=== PATIENT | female | born 1945 | race African-American/Black ===

== ENCOUNTER 2017-03-25 19:45 | Inpatient (IN) | payer MEDICARE, MEDICAID ==
[~2017-03-25] VITALS: Ht 167.6 cm; Wt 104.8 kg
[~2017-03-25 19:45] MED LIST: ASPI-1159 PO; CARV12.545 PO; CHOL20004 PO; FAMO40TA7 PO; FERR-63 PO; HYDR-4134 PO; INDA2.5T5 PO; ISOS1TAB PO; ISOS20TA8 PO; LOSA100T14 PO; RISP1 PO
[2017-03-25 20:00] VITALS: BP 132/82
[2017-03-25 20:30] VITALS: BP 132/82
[2017-03-25] MEDS ORDERED: DEXTROSE 50% WATER 50ML SYRINGE IV PRN (20:30)
[2017-03-25] MEDS ORDERED: ONDANSETRON HCL 4MG/2ML VIAL IV PRN (20:30)
[2017-03-25] MEDS: BLOOD SUGAR DIAGNOSTIC STRIP TEST SCH (21:00)
[2017-03-25] MEDS ORDERED: ACETAMINOPHEN 325MG TABLET PO PRN (21:45)
[2017-03-25] MEDS ORDERED: IRON SUCROSE COMPLEX 200 MG in SODIUM CHLORIDE 0.9% 100 ML IV SCH (22:00)
[2017-03-25] MEDS ORDERED: INSULIN DETEMIR UD 100 UNITS/ML SYR SUBCUT SCH ×2 (22:00)
[2017-03-25] MEDS ORDERED: SODIUM PHOS,M-BASIC-D-BASIC 20 MM in DEXT 5% WATER 243.3333 ML IV NR (22:00)
[2017-03-25] MEDS: INSULIN LISPRO 100 UNITS/ML SUBCUT SCH (22:48)
[2017-03-25] MEDS: RISPERIDONE 1MG TABLET PO SCH (22:49)
[2017-03-25] MEDS: INSULIN DETEMIR UD 100 UNITS/ML SYR SUBCUT SCH (22:49)
[2017-03-25] MEDS: CARVEDILOL 12.5MG TABLET PO SCH (22:50)
[2017-03-25] MEDS: FAMOTIDINE 20MG TABLET PO SCH (22:50)
[2017-03-25] MEDS: ISOSORB DINIT/HYDRALAZINE HCL 20/37.5MG TABLET PO SCH (22:51)
[2017-03-25] MEDS: DOCUSATE SODIUM 100MG CAPSULE PO SCH (23:17)
[2017-03-26] MEDS ORDERED: FISH1CAP2 PO (00:20)
[2017-03-26] MEDS ORDERED: CALC1TAB17 PO (00:20)
[2017-03-26] MEDS: BLOOD SUGAR DIAGNOSTIC STRIP TEST SCH ×4 (07:00→21:00)
[2017-03-26] MEDS: INSULIN LISPRO 100 UNITS/ML SUBCUT SCH ×7 (07:03→22:23)
[2017-03-26] MEDS ORDERED: MIDAZOLAM HCL 2 MG/2 ML VIAL ONE (07:19)
[2017-03-26] MEDS ORDERED: FENTANYL CITRATE/PF 50MCG/ML 2ML VIAL ONE (07:19)
[2017-03-26] MEDS ORDERED: SODIUM CHLORIDE 0.9% 10ML VIAL ONE (07:40)
[2017-03-26] MEDS ORDERED: CEFAZOLIN SODIUM 1000MG/VIAL ONE (07:40)
[2017-03-26] MEDS ORDERED: PROPOFOL 200MG/20ML VIAL IV ONE (07:40)
[2017-03-26] MEDS ORDERED: GLYCOPYRROLATE 0.2 MG/ML 2ML VIAL ONE (07:40)
[2017-03-26] MEDS ORDERED: LIDOCAINE HCL 1% 20ML VIAL (Pyxis) INJ ONE (07:40)
[2017-03-26] MEDS ORDERED: ONDANSETRON HCL 4MG/2ML VIAL ONE (07:41)
[2017-03-26 07:43] LABS: CARBON DIOXIDE 30 mEq/L (21-32); CHLORIDE 99 mEq/L (98-107); PHOSPHORUS 3.4 mg/dL (2.5-4.9)
[2017-03-26 08:00] VITALS: BP 129/64
[2017-03-26] MEDS: ASPIRIN 81MG EC TABLET PO SCH (08:06)
[2017-03-26] MEDS: BISACODYL 5MG TABLET PO PRN (08:06)
[2017-03-26] MEDS: INDAPAMIDE 1.25MG TABLET PO SCH (08:07)
[2017-03-26] MEDS: ISOSORB DINIT/HYDRALAZINE HCL 20/37.5MG TABLET PO SCH ×2 (08:07→22:13)
[2017-03-26] MEDS: DOCUSATE SODIUM 100MG CAPSULE PO SCH ×2 (08:07→16:31)
[2017-03-26] MEDS: LOSARTAN POTASSIUM 100 MG TABLET PO SCH (08:07)
[2017-03-26] MEDS: CYANOCOBALAMIN/FA/PYRIDOXINE TABLET PO SCH ×2 (08:07→16:31)
[2017-03-26] MEDS: CARVEDILOL 12.5MG TABLET PO SCH ×2 (08:08→22:12)
[2017-03-26] MEDS: FAMOTIDINE 20MG TABLET PO SCH ×2 (08:11→22:11)
[2017-03-26] MEDS ORDERED: FERROUS SULFATE 325MG TABLET PO SCH (09:00)
[2017-03-26] MEDS ORDERED: DOCUSATE SODIUM 100MG CAPSULE PO SCH (09:00)
[2017-03-26] MEDS ORDERED: CYANOCOBALAMIN/FA/PYRIDOXINE TABLET PO SCH (09:00)
[2017-03-26] MEDS ORDERED: INSULIN DETEMIR UD 100 UNITS/ML SYR SUBCUT SCH (10:00)
[2017-03-26] MEDS: INSULIN DETEMIR UD 100 UNITS/ML SYR SUBCUT SCH ×2 (10:06→22:22)
[2017-03-26] MEDS: HYDROCODONE/ACETAMINOPHEN 5/325MG TABLET PO PRN (11:32)
[2017-03-26] MEDS: IRON SUCROSE COMPLEX 200 MG in SODIUM CHLORIDE 0.9% 100 ML IV SCH (20:38)
[2017-03-26 20:41] VITALS: BP 134/61
[2017-03-26] MEDS: ATORVASTATIN CALCIUM 10MG TABLET PO SCH (21:00)
[2017-03-26] MEDS: RISPERIDONE 1MG TABLET PO SCH (22:12)
[2017-03-27] MEDS: BLOOD SUGAR DIAGNOSTIC STRIP TEST SCH ×4 (06:14→21:00)
[2017-03-27] MEDS: INSULIN LISPRO 100 UNITS/ML SUBCUT SCH ×7 (06:14→21:00)
[2017-03-27 08:00] VITALS: BP 129/81
[2017-03-27] MEDS: CARVEDILOL 12.5MG TABLET PO SCH ×2 (09:00→22:08)
[2017-03-27] MEDS: DOCUSATE SODIUM 100MG CAPSULE PO SCH ×2 (09:13→16:54)
[2017-03-27] MEDS: FAMOTIDINE 20MG TABLET PO SCH ×2 (09:14→22:06)
[2017-03-27] MEDS: ERGOCALCIFEROL 50000UNITS CAPSULE PO SCH (09:14)
[2017-03-27] MEDS: ASPIRIN 81MG EC TABLET PO SCH (09:14)
[2017-03-27] MEDS: CYANOCOBALAMIN/FA/PYRIDOXINE TABLET PO SCH ×2 (09:16→16:53)
[2017-03-27] MEDS: INDAPAMIDE 1.25MG TABLET PO SCH (09:17)
[2017-03-27] MEDS: ISOSORB DINIT/HYDRALAZINE HCL 20/37.5MG TABLET PO SCH ×2 (09:17→22:07)
[2017-03-27] MEDS: LOSARTAN POTASSIUM 100 MG TABLET PO SCH (09:20)
[2017-03-27] MEDS: INSULIN DETEMIR UD 100 UNITS/ML SYR SUBCUT SCH ×2 (11:05→22:00)
[2017-03-27] MEDS ORDERED: ACETAMINOPHEN 500MG TABLET PO SCH (15:00)
[2017-03-27 16:21] LABS: CLARITY URINE CLEAR (CLEAR); COLOR URINE YELLOW (YELLOW); GLUCOSE URINE 1+ (NEGATIVE); KETONES URINE NEGATIVE (NEGATIVE); LEUKOCYTE ESTERASE URINE NEGATIVE (NEGATIVE); NITRITE URINE NEGATIVE (NEGATIVE); OCCULT BLOOD URINE NEGATIVE (NEGATIVE); PH URINE 6.5 (4.5-8.0); PROTEIN URINE NEGATIVE (NEGATIVE); SPECIFIC GRAVITY URINE 1.013 (1.005-1.030); UROBILINOGEN URINE 0.2 E.U./dL (0.2-1.0)
[2017-03-27] MEDS: BISACODYL 5MG TABLET PO PRN (16:53)
[2017-03-27] MEDS: LACTULOSE 20G/30ML UDC PO PRN (16:54)
[2017-03-27 20:00] VITALS: BP 138/92
[2017-03-27] MEDS: RISPERIDONE 1MG TABLET PO SCH (22:06)
[2017-03-27] MEDS: ATORVASTATIN CALCIUM 10MG TABLET PO SCH (22:06)
[2017-03-27] MEDS: IRON SUCROSE COMPLEX 200 MG in SODIUM CHLORIDE 0.9% 100 ML IV SCH (22:08)
[2017-03-28 05:14] LABS: BASOPHILS % 0.5 % (0.0-2.0); HEMATOCRIT. 29.9 % (36.0-48.0); LYMPHOCYTES % 26.9 % (20.0-50.0); MEAN CORPUSCULAR HEMOGLOBIN 29.6 pg (28.0-32.0); MEAN CORPUSCULAR VOLUME 88.1 fL (81.0-99.0); MEAN PLATELET VOLUME 9.6 fl (7.4-10.4); MONOCYTES % 9.8 % (2.0-8.0); NEUTROPHILS % 60.8 % (40.0-76.0); PLATELET 244 x1000/uL (130-400); RED CELL DISTRIBUTION WIDTH 13.8 % (11.6-14.6)
[2017-03-28] MEDS: ACETAMINOPHEN 500MG TABLET PO PRN ×3 (05:22→16:52)
[2017-03-28] MEDS: INSULIN LISPRO 100 UNITS/ML SUBCUT SCH ×4 (06:02→21:46)
[2017-03-28] MEDS: BLOOD SUGAR DIAGNOSTIC STRIP TEST SCH ×4 (06:02→21:41)
[2017-03-28 06:20] LABS: CARBON DIOXIDE 29 mEq/L (21-32); CHLORIDE 100 mEq/L (98-107); LDL CHOLESTEROL 136 mg/dL (5-100)
[2017-03-28 06:30] LABS: HDL CHOLESTEROL 50 mg/dL (40-59); TOTAL IRON BINDING CAPACITY 242 ug/dL (250-450)
[2017-03-28 08:00] VITALS: BP 123/68
[2017-03-28] MEDS: CYANOCOBALAMIN/FA/PYRIDOXINE TABLET PO SCH ×3 (08:49→16:55)
[2017-03-28] MEDS: ASPIRIN 81MG EC TABLET PO SCH (08:49)
[2017-03-28] MEDS: DOCUSATE SODIUM 100MG CAPSULE PO SCH ×2 (08:49→16:52)
[2017-03-28] MEDS: ISOSORB DINIT/HYDRALAZINE HCL 20/37.5MG TABLET PO SCH ×2 (08:50→20:48)
[2017-03-28] MEDS: LOSARTAN POTASSIUM 100 MG TABLET PO SCH (08:50)
[2017-03-28] MEDS: INDAPAMIDE 1.25MG TABLET PO SCH (08:50)
[2017-03-28] MEDS: FAMOTIDINE 20MG TABLET PO SCH ×2 (08:50→20:48)
[2017-03-28] MEDS: LACTULOSE 20G/30ML UDC PO PRN (08:51)
[2017-03-28] MEDS: CARVEDILOL 12.5MG TABLET PO SCH ×2 (08:58→20:48)
[2017-03-28] MEDS: INSULIN DETEMIR UD 100 UNITS/ML SYR SUBCUT SCH ×2 (12:07→21:47)
[2017-03-28 13:16] LABS: FERRITIN 536 ng/mL (10-291)
[2017-03-28 15:44] LABS: VITAMIN B12 SERUM 1894 pg/mL (211-911)
[2017-03-28 15:50] LABS: FOLIC ACID (FOLATE) SERUM > 20.00 ng/mL (>5.38)
[2017-03-28 20:00] VITALS: BP 133/61
[2017-03-28] MEDS: RISPERIDONE 1MG TABLET PO SCH (20:47)
[2017-03-28] MEDS: IRON SUCROSE COMPLEX 200 MG in SODIUM CHLORIDE 0.9% 100 ML IV SCH (20:48)
[2017-03-28] MEDS: ATORVASTATIN CALCIUM 10MG TABLET PO SCH (20:49)
[2017-03-29] MEDS: BLOOD SUGAR DIAGNOSTIC STRIP TEST SCH ×4 (06:22→21:09)
[2017-03-29] MEDS: INSULIN LISPRO 100 UNITS/ML SUBCUT SCH ×4 (07:26→21:17)
[2017-03-29 08:00] VITALS: BP 116/62
[2017-03-29] MEDS: DOCUSATE SODIUM 100MG CAPSULE PO SCH ×2 (09:00→17:39)
[2017-03-29] MEDS: LOSARTAN POTASSIUM 100 MG TABLET PO SCH (09:52)
[2017-03-29] MEDS: ASPIRIN 81MG EC TABLET PO SCH (09:52)
[2017-03-29] MEDS: CYANOCOBALAMIN/FA/PYRIDOXINE TABLET PO SCH ×2 (09:53→17:00)
[2017-03-29] MEDS: FAMOTIDINE 20MG TABLET PO SCH ×2 (09:53→20:30)
[2017-03-29] MEDS: CARVEDILOL 12.5MG TABLET PO SCH ×2 (09:53→20:31)
[2017-03-29] MEDS: INDAPAMIDE 1.25MG TABLET PO SCH (09:54)
[2017-03-29] MEDS: ISOSORB DINIT/HYDRALAZINE HCL 20/37.5MG TABLET PO SCH ×2 (09:58→20:31)
[2017-03-29] MEDS: INSULIN DETEMIR UD 100 UNITS/ML SYR SUBCUT SCH ×2 (10:07→21:22)
[2017-03-29] MEDS: ACETAMINOPHEN 500MG TABLET PO PRN (18:03)
[2017-03-29 20:00] VITALS: BP 114/64
[2017-03-29] MEDS: RISPERIDONE 1MG TABLET PO SCH (20:30)
[2017-03-29] MEDS: IRON SUCROSE COMPLEX 200 MG in SODIUM CHLORIDE 0.9% 100 ML IV SCH (20:31)
[2017-03-29] MEDS: ATORVASTATIN CALCIUM 10MG TABLET PO SCH (20:32)
[2017-03-30] MEDS: BLOOD SUGAR DIAGNOSTIC STRIP TEST SCH ×4 (06:16→21:00)
[2017-03-30] MEDS: INSULIN LISPRO 100 UNITS/ML SUBCUT SCH ×4 (07:00→21:00)
[2017-03-30 08:00] VITALS: BP 107/66
[2017-03-30] MEDS: CYANOCOBALAMIN/FA/PYRIDOXINE TABLET PO SCH ×2 (08:01→16:40)
[2017-03-30] MEDS: FAMOTIDINE 20MG TABLET PO SCH ×2 (08:01→22:11)
[2017-03-30] MEDS: INDAPAMIDE 1.25MG TABLET PO SCH (08:01)
[2017-03-30] MEDS: DOCUSATE SODIUM 100MG CAPSULE PO SCH ×2 (08:01→16:40)
[2017-03-30] MEDS: ASPIRIN 81MG EC TABLET PO SCH (08:02)
[2017-03-30] MEDS: ISOSORB DINIT/HYDRALAZINE HCL 20/37.5MG TABLET PO SCH ×2 (08:03→22:16)
[2017-03-30] MEDS: CARVEDILOL 12.5MG TABLET PO SCH ×2 (08:03→22:16)
[2017-03-30] MEDS: LOSARTAN POTASSIUM 100 MG TABLET PO SCH (08:03)
[2017-03-30] MEDS: HYDROCODONE/ACETAMINOPHEN 5/325MG TABLET PO PRN (08:03)
[2017-03-30] MEDS: INSULIN DETEMIR UD 100 UNITS/ML SYR SUBCUT SCH ×2 (11:28→22:25)
[2017-03-30] MEDS ORDERED: NA PHOS,M-B/NA PHOS,DI-BA ENEMA 118ML PR NR (13:15)
[2017-03-30] MEDS: LACTULOSE 20G/30ML UDC PO SCH ×3 (13:51→22:10)
[2017-03-30] MEDS: GABAPENTIN 100MG CAPSULE PO SCH ×2 (13:51→22:11)
[2017-03-30 20:00] VITALS: BP 165/65
[2017-03-30] MEDS: RISPERIDONE 1MG TABLET PO SCH (22:11)
[2017-03-30] MEDS: ATORVASTATIN CALCIUM 10MG TABLET PO SCH (22:11)
[2017-03-31] MEDS: GABAPENTIN 100MG CAPSULE PO SCH ×3 (06:01→21:50)
[2017-03-31] MEDS: INSULIN LISPRO 100 UNITS/ML SUBCUT SCH ×4 (06:05→22:01)
[2017-03-31] MEDS: BLOOD SUGAR DIAGNOSTIC STRIP TEST SCH ×4 (06:10→21:52)
[2017-03-31 08:00] VITALS: BP 116/61
[2017-03-31] MEDS: LACTULOSE 20G/30ML UDC PO SCH ×4 (08:16→21:00)
[2017-03-31] MEDS: DOCUSATE SODIUM 100MG CAPSULE PO SCH ×2 (08:16→16:18)
[2017-03-31] MEDS: CYANOCOBALAMIN/FA/PYRIDOXINE TABLET PO SCH ×2 (08:16→16:18)
[2017-03-31] MEDS: BISACODYL 5MG TABLET PO PRN (08:16)
[2017-03-31] MEDS: INDAPAMIDE 1.25MG TABLET PO SCH (08:17)
[2017-03-31] MEDS: FAMOTIDINE 20MG TABLET PO SCH ×2 (08:17→21:52)
[2017-03-31] MEDS: ASPIRIN 81MG EC TABLET PO SCH (08:17)
[2017-03-31] MEDS: ISOSORB DINIT/HYDRALAZINE HCL 20/37.5MG TABLET PO SCH ×2 (08:18→21:50)
[2017-03-31] MEDS: CARVEDILOL 12.5MG TABLET PO SCH ×2 (08:18→21:52)
[2017-03-31] MEDS: LOSARTAN POTASSIUM 100 MG TABLET PO SCH (08:18)
[2017-03-31] MEDS: HYDROCODONE/ACETAMINOPHEN 5/325MG TABLET PO PRN (08:19)
[2017-03-31] MEDS: BISACODYL 10MG SUPP PR SCH (08:19)
[2017-03-31] MEDS ORDERED: NA PHOS,M-B/NA PHOS,DI-BA ENEMA 118ML PR PRN (09:00)
[2017-03-31] MEDS: INSULIN DETEMIR UD 100 UNITS/ML SYR SUBCUT SCH ×2 (11:39→22:02)
[2017-03-31] MEDS ORDERED: HYDROCODONE/ACETAMINOPHEN 5/325MG TABLET PO PRN (14:30)
[2017-03-31 20:00] VITALS: BP 132/69
[2017-03-31] MEDS: RISPERIDONE 1MG TABLET PO SCH (21:51)
[2017-03-31] MEDS: ATORVASTATIN CALCIUM 10MG TABLET PO SCH (21:51)
[2017-04-01] MEDS: GABAPENTIN 100MG CAPSULE PO SCH ×3 (05:58→21:32)
[2017-04-01] MEDS: INSULIN LISPRO 100 UNITS/ML SUBCUT SCH ×4 (06:03→21:41)
[2017-04-01] MEDS: BLOOD SUGAR DIAGNOSTIC STRIP TEST SCH ×4 (06:04→21:34)
[2017-04-01 08:00] VITALS: BP 119/46
[2017-04-01] MEDS: FAMOTIDINE 20MG TABLET PO SCH ×2 (08:55→21:33)
[2017-04-01] MEDS: INDAPAMIDE 1.25MG TABLET PO SCH (08:55)
[2017-04-01] MEDS: LOSARTAN POTASSIUM 100 MG TABLET PO SCH (08:55)
[2017-04-01] MEDS: ASPIRIN 81MG EC TABLET PO SCH (08:55)
[2017-04-01] MEDS: DOCUSATE SODIUM 100MG CAPSULE PO SCH ×2 (08:57→17:00)
[2017-04-01] MEDS: CYANOCOBALAMIN/FA/PYRIDOXINE TABLET PO SCH ×2 (08:58→17:00)
[2017-04-01] MEDS: ISOSORB DINIT/HYDRALAZINE HCL 20/37.5MG TABLET PO SCH ×2 (08:59→21:33)
[2017-04-01] MEDS: BISACODYL 10MG SUPP PR SCH (09:00)
[2017-04-01] MEDS: CARVEDILOL 12.5MG TABLET PO SCH ×2 (09:00→21:34)
[2017-04-01] MEDS: INSULIN DETEMIR UD 100 UNITS/ML SYR SUBCUT SCH ×2 (10:18→21:42)
[2017-04-01 20:40] VITALS: BP 139/60
[2017-04-01] MEDS: ATORVASTATIN CALCIUM 10MG TABLET PO SCH (21:33)
[2017-04-01] MEDS: RISPERIDONE 1MG TABLET PO SCH (21:33)
[2017-04-02] MEDS: BLOOD SUGAR DIAGNOSTIC STRIP TEST SCH ×4 (06:22→21:03)
[2017-04-02] MEDS: GABAPENTIN 100MG CAPSULE PO SCH ×3 (06:22→21:03)
[2017-04-02] MEDS: INSULIN LISPRO 100 UNITS/ML SUBCUT SCH ×4 (06:27→21:39)
[2017-04-02 08:00] VITALS: BP 121/61
[2017-04-02] MEDS: INDAPAMIDE 1.25MG TABLET PO SCH (09:00)
[2017-04-02] MEDS: CYANOCOBALAMIN/FA/PYRIDOXINE TABLET PO SCH ×2 (09:00→17:00)
[2017-04-02] MEDS: BISACODYL 10MG SUPP PR SCH (09:00)
[2017-04-02] MEDS: ISOSORB DINIT/HYDRALAZINE HCL 20/37.5MG TABLET PO SCH ×2 (09:16→20:59)
[2017-04-02] MEDS: ASPIRIN 81MG EC TABLET PO SCH (09:17)
[2017-04-02] MEDS: DOCUSATE SODIUM 100MG CAPSULE PO SCH ×2 (09:17→17:05)
[2017-04-02] MEDS: LOSARTAN POTASSIUM 100 MG TABLET PO SCH (09:17)
[2017-04-02] MEDS: FAMOTIDINE 20MG TABLET PO SCH ×2 (09:17→20:58)
[2017-04-02] MEDS: CARVEDILOL 12.5MG TABLET PO SCH ×2 (09:19→20:59)
[2017-04-02] MEDS: ACETAMINOPHEN 500MG TABLET PO PRN ×2 (09:21→23:35)
[2017-04-02] MEDS: INSULIN DETEMIR UD 100 UNITS/ML SYR SUBCUT SCH ×2 (10:16→21:39)
[2017-04-02 12:12] LABS: CLARITY URINE CLOUDY (CLEAR); COLOR URINE DARK YELLOW (YELLOW); GLUCOSE URINE 2+ (NEGATIVE); KETONES URINE NEGATIVE (NEGATIVE); LEUKOCYTE ESTERASE URINE 3+ (NEGATIVE); NITRITE URINE NEGATIVE (NEGATIVE); OCCULT BLOOD URINE 3+ (NEGATIVE); PROTEIN URINE 2+ (NEGATIVE); SPECIFIC GRAVITY URINE 1.014 (1.005-1.030); UROBILINOGEN URINE 0.2 E.U./dL (0.2-1.0)
[2017-04-02 20:00] VITALS: BP 118/48
[2017-04-02] MEDS: RISPERIDONE 1MG TABLET PO SCH (20:58)
[2017-04-02] MEDS: ATORVASTATIN CALCIUM 10MG TABLET PO SCH (21:00)
[2017-04-03] MEDS: GABAPENTIN 100MG CAPSULE PO SCH ×3 (06:01→21:36)
[2017-04-03] MEDS: ACETAMINOPHEN 500MG TABLET PO PRN ×3 (06:01→22:46)
[2017-04-03] MEDS: BLOOD SUGAR DIAGNOSTIC STRIP TEST SCH ×4 (06:43→21:44)
[2017-04-03] MEDS ORDERED: INSULIN LISPRO 100 UNITS/ML SUBCUT SCH (07:00)
[2017-04-03 08:00] VITALS: BP 90/50
[2017-04-03] MEDS: FAMOTIDINE 20MG TABLET PO SCH ×2 (08:39→21:36)
[2017-04-03] MEDS: ERGOCALCIFEROL 50000UNITS CAPSULE PO SCH (08:39)
[2017-04-03] MEDS: ASPIRIN 81MG EC TABLET PO SCH (08:39)
[2017-04-03] MEDS: DOCUSATE SODIUM 100MG CAPSULE PO SCH ×2 (08:39→17:26)
[2017-04-03] MEDS: INSULIN LISPRO 100 UNITS/ML SUBCUT SCH ×3 (08:45→17:45)
[2017-04-03] MEDS: INSULIN LISPRO (LOW DOSE) 100 UNITS/ML SUBCUT SCH ×3 (08:46→17:44)
[2017-04-03] MEDS: ISOSORB DINIT/HYDRALAZINE HCL 20/37.5MG TABLET PO SCH ×2 (08:47→21:38)
[2017-04-03] MEDS: CYANOCOBALAMIN/FA/PYRIDOXINE TABLET PO SCH ×2 (08:49→17:00)
[2017-04-03] MEDS: CARVEDILOL 12.5MG TABLET PO SCH ×2 (08:49→21:38)
[2017-04-03] MEDS: LOSARTAN POTASSIUM 100 MG TABLET PO SCH (08:49)
[2017-04-03] MEDS: INDAPAMIDE 1.25MG TABLET PO SCH (08:49)
[2017-04-03] MEDS: BISACODYL 10MG SUPP PR SCH (08:50)
[2017-04-03] MEDS: INSULIN DETEMIR UD 100 UNITS/ML SYR SUBCUT SCH ×2 (09:59→22:28)
[2017-04-03] MEDS: LEVOFLOXACIN 500MG TABLET PO SCH (11:23)
[2017-04-03 13:00] VITALS: BP 131/78
[2017-04-03 13:03] VITALS: BP 123/71
[2017-04-03 13:06] VITALS: BP 114/68
[2017-04-03 20:00] VITALS: BP 137/79
[2017-04-03] MEDS: ATORVASTATIN CALCIUM 10MG TABLET PO SCH (21:00)
[2017-04-03] MEDS: RISPERIDONE 1MG TABLET PO SCH (21:36)
[2017-04-04] MEDS: LACTULOSE 20G/30ML UDC PO PRN (01:39)
[2017-04-04] MEDS: ACETAMINOPHEN 500MG TABLET PO PRN ×3 (02:58→22:08)
[2017-04-04] MEDS: GABAPENTIN 100MG CAPSULE PO SCH ×3 (06:00→21:53)
[2017-04-04] MEDS: BLOOD SUGAR DIAGNOSTIC STRIP TEST SCH ×4 (06:02→21:54)
[2017-04-04] MEDS: INSULIN LISPRO (LOW DOSE) 100 UNITS/ML SUBCUT SCH ×3 (06:03→17:53)
[2017-04-04 07:22] LABS: HEMATOCRIT. 30.3 % (36.0-48.0); HEMOGLOBIN. 10.1 g/dL (12.0-16.0); MEAN CORPUSCULAR HEMOGLOBIN 29.6 pg (28.0-32.0); PLATELET 285 x1000/uL (130-400); RED BLOOD CELL COUNT 3.41 mill/uL (4.2-5.4); RED CELL DISTRIBUTION WIDTH 14.4 % (11.6-14.6)
[2017-04-04 07:39] LABS: PHOSPHORUS 2.6 mg/dL (2.5-4.9)
[2017-04-04 08:00] VITALS: BP 119/68
[2017-04-04] MEDS: INDAPAMIDE 1.25MG TABLET PO SCH (08:42)
[2017-04-04] MEDS: CYANOCOBALAMIN/FA/PYRIDOXINE TABLET PO SCH ×2 (08:42→17:50)
[2017-04-04] MEDS: ASPIRIN 81MG EC TABLET PO SCH (08:42)
[2017-04-04] MEDS: DOCUSATE SODIUM 100MG CAPSULE PO SCH ×2 (08:42→17:50)
[2017-04-04] MEDS: ISOSORB DINIT/HYDRALAZINE HCL 20/37.5MG TABLET PO SCH ×2 (08:43→21:56)
[2017-04-04] MEDS: FAMOTIDINE 20MG TABLET PO SCH ×2 (08:43→21:52)
[2017-04-04] MEDS: INSULIN LISPRO 100 UNITS/ML SUBCUT SCH ×3 (08:45→17:53)
[2017-04-04] MEDS: BISACODYL 10MG SUPP PR SCH (09:00)
[2017-04-04 09:07] LABS: PLATELET ESTIMATE NORMAL
[2017-04-04] MEDS: LOSARTAN POTASSIUM 100 MG TABLET PO SCH (11:00)
[2017-04-04] MEDS: CARVEDILOL 12.5MG TABLET PO SCH ×2 (11:00→21:55)
[2017-04-04] MEDS: INSULIN DETEMIR UD 100 UNITS/ML SYR SUBCUT SCH ×2 (11:03→22:05)
[2017-04-04 11:10] VITALS: BP 114/55
[2017-04-04] MEDS: LEVOFLOXACIN 500MG TABLET PO SCH (11:13)
[2017-04-04 20:00] VITALS: BP 117/70
[2017-04-04] MEDS: ATORVASTATIN CALCIUM 10MG TABLET PO SCH (21:00)
[2017-04-04] MEDS: RISPERIDONE 1MG TABLET PO SCH (21:54)
[2017-04-05] MEDS: GABAPENTIN 100MG CAPSULE PO SCH ×3 (05:59→22:16)
[2017-04-05] MEDS: BLOOD SUGAR DIAGNOSTIC STRIP TEST SCH ×4 (06:22→21:00)
[2017-04-05] MEDS: ACETAMINOPHEN 500MG TABLET PO PRN (06:22)
[2017-04-05] MEDS: INSULIN LISPRO (LOW DOSE) 100 UNITS/ML SUBCUT SCH ×3 (06:23→17:44)
[2017-04-05 07:06] VITALS: BP 99/44
[2017-04-05] MEDS: CYANOCOBALAMIN/FA/PYRIDOXINE TABLET PO SCH ×2 (08:29→16:59)
[2017-04-05] MEDS: FAMOTIDINE 20MG TABLET PO SCH ×2 (08:30→22:18)
[2017-04-05] MEDS: DOCUSATE SODIUM 100MG CAPSULE PO SCH ×2 (08:30→16:59)
[2017-04-05] MEDS: ASPIRIN 81MG EC TABLET PO SCH (08:30)
[2017-04-05] MEDS: INDAPAMIDE 1.25MG TABLET PO SCH (08:30)
[2017-04-05] MEDS: INSULIN LISPRO 100 UNITS/ML SUBCUT SCH ×3 (08:31→17:43)
[2017-04-05] MEDS: LOSARTAN POTASSIUM 100 MG TABLET PO SCH (09:00)
[2017-04-05] MEDS: ISOSORB DINIT/HYDRALAZINE HCL 20/37.5MG TABLET PO SCH ×2 (09:00→22:15)
[2017-04-05] MEDS: CARVEDILOL 12.5MG TABLET PO SCH ×2 (09:00→22:17)
[2017-04-05] MEDS: BISACODYL 10MG SUPP PR SCH (09:00)
[2017-04-05] MEDS: LEVOFLOXACIN 500MG TABLET PO SCH (10:42)
[2017-04-05] MEDS: INSULIN DETEMIR UD 100 UNITS/ML SYR SUBCUT SCH ×2 (10:43→22:27)
[2017-04-05] MEDS ORDERED: HYDROCODONE/ACETAMINOPHEN 5/325MG TABLET PO PRN (14:30)
[2017-04-05 15:11] LABS: 25-HYDROXY VITAMIN D3 8.1 ng/mL (.)
[2017-04-05 20:00] VITALS: BP 111/64
[2017-04-05] MEDS: ATORVASTATIN CALCIUM 10MG TABLET PO SCH (22:16)
[2017-04-05] MEDS: LACTULOSE 20G/30ML UDC PO PRN (22:16)
[2017-04-05] MEDS: RISPERIDONE 1MG TABLET PO SCH (22:17)
[2017-04-06] MEDS: ACETAMINOPHEN 500MG TABLET PO PRN ×2 (03:30→08:04)
[2017-04-06] MEDS: BLOOD SUGAR DIAGNOSTIC STRIP TEST SCH ×4 (06:13→21:31)
[2017-04-06] MEDS: GABAPENTIN 100MG CAPSULE PO SCH ×3 (06:13→21:18)
[2017-04-06] MEDS: INSULIN LISPRO (LOW DOSE) 100 UNITS/ML SUBCUT SCH ×3 (06:17→17:45)
[2017-04-06] MEDS: INSULIN LISPRO 100 UNITS/ML SUBCUT SCH ×3 (06:17→17:44)
[2017-04-06 08:00] VITALS: BP 110/73
[2017-04-06] MEDS: FAMOTIDINE 20MG TABLET PO SCH ×2 (08:03→21:18)
[2017-04-06] MEDS: INDAPAMIDE 1.25MG TABLET PO SCH (08:03)
[2017-04-06] MEDS: DOCUSATE SODIUM 100MG CAPSULE PO SCH ×2 (08:04→16:25)
[2017-04-06] MEDS: ASPIRIN 81MG EC TABLET PO SCH (08:04)
[2017-04-06] MEDS: LOSARTAN POTASSIUM 100 MG TABLET PO SCH (08:24)
[2017-04-06] MEDS: ISOSORB DINIT/HYDRALAZINE HCL 20/37.5MG TABLET PO SCH ×2 (08:24→21:19)
[2017-04-06] MEDS: CYANOCOBALAMIN/FA/PYRIDOXINE TABLET PO SCH ×2 (08:24→16:25)
[2017-04-06] MEDS: BISACODYL 10MG SUPP PR SCH (08:24)
[2017-04-06] MEDS: CARVEDILOL 12.5MG TABLET PO SCH ×2 (08:24→21:18)
[2017-04-06] MEDS: INSULIN DETEMIR UD 100 UNITS/ML SYR SUBCUT SCH ×2 (09:28→21:33)
[2017-04-06] MEDS: LEVOFLOXACIN 500MG TABLET PO SCH (11:32)
[2017-04-06 20:00] VITALS: BP 131/52
[2017-04-06] MEDS: ATORVASTATIN CALCIUM 10MG TABLET PO SCH (21:00)
[2017-04-06] MEDS: RISPERIDONE 1MG TABLET PO SCH (21:30)
[2017-04-07] MEDS: BLOOD SUGAR DIAGNOSTIC STRIP TEST SCH ×4 (05:42→21:20)
[2017-04-07] MEDS: GABAPENTIN 100MG CAPSULE PO SCH ×3 (05:49→21:21)
[2017-04-07] MEDS: INSULIN LISPRO 100 UNITS/ML SUBCUT SCH ×4 (07:12→17:14)
[2017-04-07] MEDS: INSULIN LISPRO (LOW DOSE) 100 UNITS/ML SUBCUT SCH ×3 (07:13→17:13)
[2017-04-07 08:00] VITALS: BP 116/52
[2017-04-07] MEDS: DOCUSATE SODIUM 100MG CAPSULE PO SCH ×2 (08:25→16:13)
[2017-04-07] MEDS: FAMOTIDINE 20MG TABLET PO SCH ×2 (08:25→21:21)
[2017-04-07] MEDS: CARVEDILOL 12.5MG TABLET PO SCH ×2 (08:26→21:22)
[2017-04-07] MEDS: ISOSORB DINIT/HYDRALAZINE HCL 20/37.5MG TABLET PO SCH ×2 (08:26→21:22)
[2017-04-07] MEDS: ASPIRIN 81MG EC TABLET PO SCH (08:26)
[2017-04-07] MEDS: LOSARTAN POTASSIUM 100 MG TABLET PO SCH (08:27)
[2017-04-07] MEDS: CYANOCOBALAMIN/FA/PYRIDOXINE TABLET PO SCH ×2 (08:27→16:14)
[2017-04-07] MEDS: INDAPAMIDE 1.25MG TABLET PO SCH (08:28)
[2017-04-07] MEDS: BISACODYL 10MG SUPP PR SCH (08:28)
[2017-04-07] MEDS: INSULIN DETEMIR UD 100 UNITS/ML SYR SUBCUT SCH ×2 (10:37→21:50)
[2017-04-07] MEDS: LEVOFLOXACIN 500MG TABLET PO SCH (11:58)
[2017-04-07 16:09] LABS: CLARITY URINE CLEAR (CLEAR); COLOR URINE YELLOW (YELLOW); GLUCOSE URINE 3+ (NEGATIVE); KETONES URINE NEGATIVE (NEGATIVE); LEUKOCYTE ESTERASE URINE NEGATIVE (NEGATIVE); NITRITE URINE NEGATIVE (NEGATIVE); OCCULT BLOOD URINE NEGATIVE (NEGATIVE); PROTEIN URINE TRACE (NEGATIVE); SPECIFIC GRAVITY URINE 1.023 (1.005-1.030); UROBILINOGEN URINE 0.2 E.U./dL (0.2-1.0)
[2017-04-07 20:00] VITALS: BP 135/75
[2017-04-07] MEDS: ATORVASTATIN CALCIUM 10MG TABLET PO SCH (21:00)
[2017-04-07] MEDS: NAPROXEN 500MG TABLET PO SCH (21:19)
[2017-04-07] MEDS: RISPERIDONE 1MG TABLET PO SCH (21:20)
[2017-04-07] MEDS: ACETAMINOPHEN 500MG TABLET PO PRN (21:43)
[2017-04-08] MEDS: BLOOD SUGAR DIAGNOSTIC STRIP TEST SCH ×4 (06:07→21:47)
[2017-04-08] MEDS: GABAPENTIN 100MG CAPSULE PO SCH ×3 (06:07→21:46)
[2017-04-08] MEDS: INSULIN LISPRO 100 UNITS/ML SUBCUT SCH ×3 (06:37→18:06)
[2017-04-08] MEDS: INSULIN LISPRO (LOW DOSE) 100 UNITS/ML SUBCUT SCH ×3 (06:38→18:05)
[2017-04-08 06:51] LABS: PHOSPHORUS 2.9 mg/dL (2.5-4.9)
[2017-04-08 08:00] VITALS: BP 115/61
[2017-04-08] MEDS: INDAPAMIDE 1.25MG TABLET PO SCH (08:27)
[2017-04-08] MEDS: CARVEDILOL 12.5MG TABLET PO SCH ×2 (08:28→21:00)
[2017-04-08] MEDS: DOCUSATE SODIUM 100MG CAPSULE PO SCH ×2 (08:29→16:41)
[2017-04-08] MEDS: LOSARTAN POTASSIUM 100 MG TABLET PO SCH (08:29)
[2017-04-08] MEDS: ISOSORB DINIT/HYDRALAZINE HCL 20/37.5MG TABLET PO SCH ×2 (08:29→21:00)
[2017-04-08] MEDS: NAPROXEN 500MG TABLET PO SCH ×2 (08:29→21:46)
[2017-04-08] MEDS: ASPIRIN 81MG EC TABLET PO SCH (08:30)
[2017-04-08] MEDS: BISACODYL 10MG SUPP PR SCH (08:30)
[2017-04-08] MEDS: CYANOCOBALAMIN/FA/PYRIDOXINE TABLET PO SCH ×2 (08:30→16:42)
[2017-04-08] MEDS: FAMOTIDINE 20MG TABLET PO SCH ×2 (08:30→21:46)
[2017-04-08] MEDS: INSULIN DETEMIR UD 100 UNITS/ML SYR SUBCUT SCH ×2 (11:09→21:55)
[2017-04-08] MEDS: LEVOFLOXACIN 500MG TABLET PO SCH (11:09)
[2017-04-08 20:00] VITALS: BP 118/62
[2017-04-08] MEDS: ATORVASTATIN CALCIUM 10MG TABLET PO SCH (21:00)
[2017-04-08] MEDS: RISPERIDONE 1MG TABLET PO SCH (21:46)
[2017-04-09] MEDS: GABAPENTIN 100MG CAPSULE PO SCH ×3 (06:01→21:27)
[2017-04-09] MEDS: BLOOD SUGAR DIAGNOSTIC STRIP TEST SCH ×4 (06:59→21:31)
[2017-04-09] MEDS: INSULIN LISPRO (LOW DOSE) 100 UNITS/ML SUBCUT SCH ×3 (07:00→17:00)
[2017-04-09 08:00] VITALS: BP 112/49
[2017-04-09] MEDS: INDAPAMIDE 1.25MG TABLET PO SCH (08:13)
[2017-04-09] MEDS: CYANOCOBALAMIN/FA/PYRIDOXINE TABLET PO SCH ×3 (08:16→16:57)
[2017-04-09] MEDS: DOCUSATE SODIUM 100MG CAPSULE PO SCH ×2 (08:16→16:59)
[2017-04-09] MEDS: CARVEDILOL 12.5MG TABLET PO SCH ×2 (08:16→21:27)
[2017-04-09] MEDS: FAMOTIDINE 20MG TABLET PO SCH ×2 (08:16→21:26)
[2017-04-09] MEDS: NAPROXEN 500MG TABLET PO SCH ×2 (08:17→21:25)
[2017-04-09] MEDS: ASPIRIN 81MG EC TABLET PO SCH (08:17)
[2017-04-09] MEDS: INSULIN LISPRO 100 UNITS/ML SUBCUT SCH ×3 (08:22→17:00)
[2017-04-09] MEDS: ISOSORB DINIT/HYDRALAZINE HCL 20/37.5MG TABLET PO SCH ×2 (08:23→21:26)
[2017-04-09] MEDS: BISACODYL 10MG SUPP PR SCH (08:23)
[2017-04-09] MEDS: LOSARTAN POTASSIUM 100 MG TABLET PO SCH (08:23)
[2017-04-09] MEDS: LEVOFLOXACIN 500MG TABLET PO SCH (10:49)
[2017-04-09] MEDS: TERBINAFINE HCL 1% CREAM 30GM TOP SCH (10:52)
[2017-04-09] MEDS: INSULIN DETEMIR UD 100 UNITS/ML SYR SUBCUT SCH ×2 (10:58→21:39)
[2017-04-09] MEDS: BISACODYL 5MG TABLET PO PRN (14:20)
[2017-04-09 20:00] VITALS: BP 140/72
[2017-04-09] MEDS: ATORVASTATIN CALCIUM 10MG TABLET PO SCH (21:00)
[2017-04-09] MEDS: RISPERIDONE 1MG TABLET PO SCH (21:25)
[2017-04-10] MEDS: BLOOD SUGAR DIAGNOSTIC STRIP TEST SCH ×2 (05:52→10:53)
[2017-04-10] MEDS: GABAPENTIN 100MG CAPSULE PO SCH (06:13)
[2017-04-10] MEDS: INSULIN LISPRO (LOW DOSE) 100 UNITS/ML SUBCUT SCH ×2 (06:13→12:42)
[2017-04-10 07:00] VITALS: BP 101/59
[2017-04-10] MEDS: NAPROXEN 500MG TABLET PO SCH (08:23)
[2017-04-10] MEDS: ASPIRIN 81MG EC TABLET PO SCH (08:23)
[2017-04-10] MEDS: FAMOTIDINE 20MG TABLET PO SCH (08:23)
[2017-04-10] MEDS: INDAPAMIDE 1.25MG TABLET PO SCH (08:23)
[2017-04-10] MEDS: ERGOCALCIFEROL 50000UNITS CAPSULE PO SCH (08:23)
[2017-04-10] MEDS: INSULIN LISPRO 100 UNITS/ML SUBCUT SCH ×2 (08:24→12:43)
[2017-04-10] MEDS: ISOSORB DINIT/HYDRALAZINE HCL 20/37.5MG TABLET PO SCH (08:29)
[2017-04-10] MEDS: LOSARTAN POTASSIUM 100 MG TABLET PO SCH (08:30)
[2017-04-10] MEDS: CARVEDILOL 12.5MG TABLET PO SCH (08:30)
[2017-04-10] MEDS: BISACODYL 10MG SUPP PR SCH (08:31)
[2017-04-10] MEDS: DOCUSATE SODIUM 100MG CAPSULE PO SCH (08:31)
[2017-04-10] MEDS: CYANOCOBALAMIN/FA/PYRIDOXINE TABLET PO SCH (08:34)
[2017-04-10] MEDS: TERBINAFINE HCL 1% CREAM 30GM TOP SCH (10:13)
[2017-04-10] MEDS: LEVOFLOXACIN 500MG TABLET PO SCH (10:14)
[2017-04-10] MEDS: INSULIN DETEMIR UD 100 UNITS/ML SYR SUBCUT SCH (10:16)
[2017-04-10 12:50] VITALS: BP 118/47
[2017-04-10 13:03] VITALS: BP 118/47
== END 2017-04-10 14:00 | disposition home health service (06) | DRG 552 ==
PROVIDERS: ADMIT Psychiatry & Neurology Neurology; ATTEND Psychiatry & Neurology Neurology
DX: M47.14 Other spondylosis with myelopathy, thoracic region (principal); E44.1 Mild protein-calorie malnutrition; N39.0 Urinary tract infection, site not specified; M48.04 Spinal stenosis, thoracic region; M48.07 Spinal stenosis, lumbosacral region; E11.65 Type 2 diabetes mellitus with hyperglycemia; E66.01 Morbid (severe) obesity due to excess calories; R26.9 Unspecified abnormalities of gait and mobility; E78.5 Hyperlipidemia, unspecified; F22 Delusional disorders; F31.9 Bipolar disorder, unspecified; I11.9 Hypertensive heart disease without heart failure; M48.02 Spinal stenosis, cervical region; R32 Unspecified urinary incontinence; F41.9 Anxiety disorder, unspecified; M19.90 Unspecified osteoarthritis, unspecified site; B35.1 Tinea unguium; B35.3 Tinea pedis; B96.20 Unspecified Escherichia coli [E. coli] as the cause of diseases classified elsewhere; B96.89 Other specified bacterial agents as the cause of diseases classified elsewhere; D64.9 Anemia, unspecified; E78.00 Pure hypercholesterolemia, unspecified; L60.3 Nail dystrophy; L60.0 Ingrowing nail; Z68.38 Body mass index [BMI] 38.0-38.9, adult; Z83.3 Family history of diabetes mellitus; Z82.49 Family history of ischemic heart disease and other diseases of the circulatory system; Z79.899 Other long term (current) drug therapy
CPT/HCPCS: 36415; 73502; 80048; 80053; 80061; 81001; 82306; 82310; 82607; 82728; 82746; 82962; 83036; 83540; 83550; 83735; 84100; 84134; 84443; 84484; 84550; 84630; 85007; 85025; 85027; 87077; 87086; 87186; 93005; 93970; 97110; 97116; 97162; 97167; 97530; 97535; A4216; A6261; C1893; J0690; J1815; J2250; J2405; J2704; J3010; J3490; J7050; J7060; A5200